=== PATIENT | female | born 1980 | race Caucasian/White ===

== ENCOUNTER 2022-02-20 09:35 | Emergency (ER) | payer OTHER ==
[2022-02-20 10:41] VITALS: BP 121/73; PULSE 90; TEMP 98.3; BMI 24.7
== END 2022-02-20 11:52 | disposition home or self-care (01) ==
LOC: JERFT 09:35
DX: L08.9 Local infection of the skin and subcutaneous tissue, unspecified (principal)
CPT/HCPCS: 99281-25